=== PATIENT | male | born 1985 | race Caucasian/White ===

== ENCOUNTER 2018-07-28 13:17 | Inpatient (IN) ==
[2018-07-28] MEDS ORDERED: Albuterol 2.5 MG/3 ML NEBULIZER IH ONE ×2 (13:44→16:17)
[2018-07-28] MEDS ORDERED: Ringers Solution, Lactated 1,000 ML IVC SCH (13:45)
[2018-07-28] MEDS ORDERED: *HR* Midazolam HCl 2 MG/2 ML VIAL ONE (13:50)
[2018-07-28] MEDS ORDERED: Dexamethasone 4 MG/ML VIAL ONE (13:50)
[2018-07-28] MEDS ORDERED: Ondansetron 4 MG/2 ML VIAL ONE (13:50)
[2018-07-28] MEDS ORDERED: Bupivacaine/EPI 1:200k 0.5%PF 10 ML VIAL ONE (13:50)
[2018-07-28] MEDS ORDERED: *HR* Propofol 200 MG/20 ML VIAL IVP ONE (13:50)
[2018-07-28] MEDS ORDERED: *HR* FentaNYL (PF) 100 MCG/2 ML VIAL ONE (13:50)
[2018-07-28] MEDS ORDERED: Lidocaine -MPF 2% 2 ML VIAL ONE (13:50)
[2018-07-28] MEDS ORDERED: *HR* Rocuronium Bromide 50 MG/5 ML VIAL ONE (13:55)
[2018-07-28] MEDS ORDERED: *HR* Succinylcholine 200 MG/10 ML VIAL IVP ONE ×2 (13:55→15:50)
[2018-07-28] MEDS ORDERED: Lidocaine -MPF 4% 5 ML AMPUL ONE (13:56)
--- NOTE | 2018-07-28 14:02 | Anesthesia Evaluation PreOp ---
Date of Encounter: 07/28/18 Time of Encounter: 14:00 - Past History Planned Operation: I and D elbow Cardiac History: HTN Pulmonary History: Smoker Other Medical History: Other (obese) Anesthesia History: No Prior Anesthetic Complications, Past Anesthesia (No hx of anesthetic complications) Alcohol Use: occasionally Drug use: IV Drug Use (Hx of alcoholism and IV drug use. Has been sober 6 months, never been on suboxone rx.) Medications and Allergies Ofloxacin *EAR* Drops 10 drop BOTH EARS DAILY 07/28/18 [History] amLODIPine [Norvasc] 10 mg PO DAILY 07/28/18 [History] 3 Allergy/AdvReac Type Severity Reaction Status Date / Time No Known Allergies Allergy Verified 07/28/18 13:41 - Meds/Allergy Pre-op Review Medications Reviewed: Yes Allergies Reviewed: Yes Beta Blockers on Current Med List: No Anesthesia Results - Imaging EKG: report reviewed (sinus thom) Anesthesia Exam Selected Entries 07/28/18 13:47 Temperature 98.3 F Pulse Rate 90 Respiratory Rate 18 Blood Pressure 144/87 O2 Sat by Pulse Oximetry 97 Laboratory Tests 03/16/18 07/09/18 10:36 11:36 WBC 6.4 Hgb 16.2 Hct 45.7 Plt Count 188 Sodium 141 Potassium 4.3 Chloride 109 H Weight: 129 kg NPO (# of Hours): over 8 hours - HEENT Pupil (Motor): Pupils equal Mallampati: II Teeth: Normal Oral Opening: Greater than 3 - Cardiac Rhythm: Regular Murmur: None - Pulmonary Breath Sounds: bilateral Clear Respiratory Effort: Symmetrical Anesthesia Assess/Plan ASA Score: 3 Modified Switchback Scale for Level of Consciousness: Cooperative, oriented, and tranquil Anesthetic Plan: General Monitoring Plan: Standard Monitors Recovery Plan: PACU (Discussed GA, risks. Agreed to proceed.)
[2018-07-28 14:11] LABS: Basophils # 0.1 K/mcL (0.0-0.2); Basophils % 0.8 %; Eosinophils # 0.1 K/mcL (0.0-0.6); Eosinophils % 1.7 %; Hematocrit 47.9 % (37.5-50.1); Hemoglobin 17.2 g/dL (12.9-16.9); Immature Granulocytes % 0.3 % (0-4); Lymphocytes # 3.4 K/mcL (0.6-4.6); Lymphocytes % 52.2 %; Mean Corpuscular HGB Conc 35.9 g/dL (31.6-35.5); Mean Corpuscular Hemoglobin 33.9 pg (28.0-33.3); Mean Corpuscular Volume 94.3 fL (83.0-100.0); Monocytes # 0.4 K/mcL (0.0-1.3); Monocytes % 5.5 %; Neutrophils # 2.6 K/mcL (1.6-8.9); Platelet Count 176 K/mcL (140-400); Red Blood Count 5.08 M/mcL (4.19-5.50); Red Cell Distribution Width 12.7 % (11.5-14.5); Segmented Neutrophils % 39.5 %
[2018-07-28] MEDS ORDERED: Acetaminophen IV 1,000 MG/100 ML INFUS..BTL IVPB ONE (14:16)
[2018-07-28] MEDS ORDERED: Gabapentin 300 MG CAPSULE PO ONE (14:16)
[2018-07-28 14:42] LABS: BUN/Creatinine Ratio 12 (6-26); Blood Urea Nitrogen 11 mg/dL (6-20); Calcium 9.7 mg/dL (8.6-10.3); Carbon Dioxide 24 mEq/L (23-29); Chloride 106 mEq/L (98-107); Glucose 92 mg/dL (70-105); Osmolality,Calculated 285 (280-300); Potassium 3.8 mEq/L (3.5-5.1); Sodium 138 mEq/L (136-145); eGFR For Non-African Americans > 60 (> 60)
[2018-07-28] MEDS ORDERED: CeFAZolin Syr 2,000MG/20 ML 2,000 MG/20 ML SYRINGE IVPB ONE (14:49)
[2018-07-28] MEDS ORDERED: CeFAZolin Syr 3,000MG/30 ML 3,000 MG/30 ML SYRINGE IVPB ONE (14:56)
--- NOTE | 2018-07-28 15:09 | History & Physical Report ---
Date of Encounter: 07/28/18 Time of Encounter: 15:08 24 Hour HP Update - Instructions Instructions: If the History and Physical is less than 30 days old and was completed prior to A.M. admission and or procedure and has NOT been updated on calendar day of procedure please complete this update prior to performing procedure. - Update Patient reports changes in Medical Condition: No Changes in examination, assessment, or condition: No Changes in Medication: No Preop tests/diagnostics Reviewed: Yes Surgery Remains Indicated: Yes Consent for Planned Operative Procedure(s) Verified: Yes
[2018-07-28] MEDS ORDERED: *HR* Morphine 10 MG/ML VIAL ONE (15:41)
[2018-07-28] MEDS ORDERED: Propofol 500 MG/50 ML INFUS..BTL ONE (15:50)
[2018-07-28] MEDS ORDERED: MORPHINE SUL Oral CONC 10 MG/0.5 ML ORAL.SYG SL PRN (16:17)
[2018-07-28] MEDS ORDERED: Ondansetron 4 MG/2 ML VIAL IVP ONE (16:17)
[2018-07-28] MEDS ORDERED: Dexamethasone 4 MG/ML VIAL IVP ONE (16:17)
[2018-07-28] MEDS ORDERED: *HR* HYDROmorphone 2 MG TABLET PO PRN (16:17)
[2018-07-28] MEDS ORDERED: *HR* Promethazine 25 MG/ML VIAL IVP PRN (16:17)
[2018-07-28] MEDS ORDERED: *HR* PHENYLEPHRINE 1,000 MCG/10 ML SYRINGE IVP ONE (16:45)
[2018-07-28] MEDS ORDERED: *HR* HYDROmorphone 2 MG/ML SYRINGE ONE (16:50)
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
[2018-07-28] MEDS ORDERED: Ketorolac 30 MG/ML VIAL IVP ONE (18:19)
[2018-07-28] MEDS ORDERED: cloNIDine HCl 0.1 MG TABLET PO ONE (18:19)
--- NOTE | 2018-07-28 19:14 | Anesthesia Evaluation Post Op ---
Date of Encounter: 07/28/18 Time of Encounter: 19:14 - Discharge PostOp Status: Transfer Patient to floor (Patient's vital signs have been reviewed. Patient is stable postoperatively and has adequately recovered from anesthesia. Patient is determined to have stable airway patency and respiratory function including respiratory rate and oxygen saturation. Patient has a stable heart rate, blood pressure and adequate hydration. Patients mental status is acceptable. Patients temperature is appropriate. Pain and nausea are adequately controlled.)
[2018-07-28] MEDS ORDERED: *HR* OxyCODONE Immed Rel 5 MG TABLET PO PRN (19:28)
[2018-07-28] MEDS ORDERED: Ibuprofen 400 MG TABLET PO PRN (19:28)
[2018-07-28] MEDS ORDERED: Ondansetron 4 MG/2 ML VIAL IVP PRN (19:28)
[2018-07-28] MEDS ORDERED: Naloxone 0.4 MG/ML INJ IVP PRN (19:28)
[2018-07-28] MEDS ORDERED: Vancomycin (wt based) 1,000 MG VIAL IVPB SCH (19:28)
[2018-07-28] MEDS ORDERED: *HR* HYDROcodone/Acet 5/325 mg TABLET PO PRN (19:28)
[2018-07-29] MEDS: *HR* Enoxaparin 40 MG/0.4 ML SYRINGE SQ SCH (05:06)
[2018-07-29 05:26] LABS: Basophils % 0.1 %; Hematocrit 44.4 % (37.5-50.1); Immature Granulocytes % 0.5 % (0-4); Lymphocytes # 1.5 K/mcL (0.6-4.6); Lymphocytes % 9.7 %; Mean Corpuscular HGB Conc 35.1 g/dL (31.6-35.5); Mean Corpuscular Hemoglobin 33.8 pg (28.0-33.3); Mean Corpuscular Volume 96.1 fL (83.0-100.0); Mean Platelet Volume 10.4 fL (9.4-12.4); Monocytes # 0.7 K/mcL (0.0-1.3); Monocytes % 4.3 %; Neutrophils # 13.1 K/mcL (1.6-8.9); Platelet Count 197 K/mcL (140-400); Red Blood Count 4.62 M/mcL (4.19-5.50); Red Cell Distribution Width 12.7 % (11.5-14.5); Segmented Neutrophils % 85.4 %
[2018-07-29 05:27] LABS: Hemoglobin 15.6 g/dL (12.9-16.9)
[2018-07-29] MEDS: Ketorolac 30 MG/ML VIAL IVP PRN ×3 (05:36→20:11)
[2018-07-29 06:09] LABS: BUN/Creatinine Ratio 14 (6-26); Blood Urea Nitrogen 15 mg/dL (6-20); Calcium 9.3 mg/dL (8.6-10.3); Carbon Dioxide 23 mEq/L (23-29); Chloride 107 mEq/L (98-107); Glucose 191 mg/dL (70-105); Osmolality,Calculated 294 (280-300); Potassium 4.2 mEq/L (3.5-5.1); Sodium 139 mEq/L (136-145); eGFR For Non-African Americans > 60 (> 60)
--- NOTE | 2018-07-29 07:33 | Orthopedics Progress Note ---
Date of Encounter: 07/29/18 Time of Encounter: 07:30 Subjective Interval history: S: Resting in bed comfortably. Pain well controlled to the left elbow. O: Afebrile, VSS Left upper extremity splint in place Mild sanguinous output in the drain The patient can actively flex and extend all digits, extend the thumb, cross the index and long fingers, make an okay sign, and oppose the thumb. The fingertips are all sensate and well-perfused. Cultures are pending the bacteria was seen on the Gram stain A: Left proximal ulna osteomyelitis post hardware removal and debridement P: At this point my recommendation is for continued IV antibiotics for now. I did discuss the case with Dr. Calle of [place] and we will see the patient in consultation to assist in antibiotic management. I will take the dressing down tomorrow to evaluate the wound and pull the drain. Objective Vital signs: Vital Signs Temp Pulse Resp BP Pulse Ox 07/29/18 06:41 97.6 F 78 16 148/67 95 07/29/18 03:46 96.9 F L 71 16 144/64 94 07/29/18 00:26 97.7 F 97 17 124/83 92 07/28/18 22:06 98.8 F 86 16 108/62 93 07/28/18 21:45 98.5 F 85 16 133/76 92 07/28/18 20:43 99 F 85 16 120/79 96 07/28/18 19:56 98.5 F 80 16 121/77 94 07/28/18 19:35 98.6 F 84 16 147/83 97 07/28/18 19:07 88 22 133/89 97 07/28/18 18:57 78 20 135/88 93 07/28/18 18:47 97.3 F L 78 20 139/87 92 07/28/18 18:37 78 20 131/98 92 07/28/18 18:27 89 20 157/109 92 07/28/18 18:17 97.1 F L 84 18 128/93 94 07/28/18 18:07 94 20 139/88 94 07/28/18 17:57 99 22 142/91 96 07/28/18 17:47 98.2 F 98 20 149/98 95 07/28/18 13:47 98.3 F 90 18 144/87 97 Intake and Output 07/28/18 07/28/18 07/29/18 15:59 23:59 07:59 Intake Total 500 / 500 Output Total 40 / 40 310 / 310 Balance 460 / 460 -310 / -310 Intake: IV Fluids 500 / 500 Vancocin 2,000 MG In 0.9 % 500 / 500 Sodium Chloride 500 ML @ 250 mls/hr IVPB Q[facility]H [facility] Rx#: [id number] Output: Urine 300 / 300 Estimated Blood Loss Wound Drainage Left Elbow Other: # Voids 1 Weight 129.274 kg 135.7 kg Patient Weight 07/29/18 23:59 Weight 135.7 kg - Labs CBC & BMP: 07/29/18 05:12 07/29/18 05:12 Labs: Abnormal lab results WBC 15.3 K/mcL (4.3-11.1) H D 07/29/18 05:12 MCH 33.8 pg (28.0-33.3) H 07/29/18 05:12 Neutrophils # 13.1 K/mcL (1.6-8.9) H 07/29/18 05:12 ESR 17 mm/hr (0-10) H 07/28/18 18:20 Glucose 191 mg/dL (70-105) H 07/29/18 05:12 C-Reactive Protein 10 mg/L (Less than 10) H 07/28/18 18:20 Consult Discharge Plan - Plan Referrals: Sunita Hackett [Primary Care Provider] -
[2018-07-29] MEDS: amLODIPine 5 MG TABLET PO SCH (08:31)
--- NOTE | 2018-07-29 08:40 | Electrocardiograph Report ---
[place] [employer] [facility] Test Date: 2018-07-28 Pat Name: Oswald Perez Department: 101 Room: [facility] Gender: M Staff Radiographer: SHERI : 1985 Requested By: Rudolph Saldana Order Number: [id number] Reading MD: Ishaan Castillo Measurements Intervals [place] Rate: 87 P: 35 SC: 150 QRS: 38 QRSD: 87 T: 10 QT: 362 QTc: 406 Interpretive Statements SINUS RHYTHM Electronically Signed On 07-29-2018 8:38:38 EDT by Ishaan Castillo
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
[2018-07-29] MEDS: Ofloxacin *EAR* Drops 5 ML BOTTLE BOTH EARS SCH (16:04)
[2018-07-29] MEDS: Ringers Solution, Lactated 1,000 ML IVC SCH ×2 (17:48→17:49)
[2018-07-29 19:52] LABS: HIV-1&2 Antibody & p24 Ag Nonreactive (Nonreactive); Hepatitis B Surface Antigen Nonreactive (Nonreactive)
[2018-07-29 22:06] LABS: Hepatitis B Surface Antibody 104.29 mIU/mL
[2018-07-30] MEDS: *HR* Enoxaparin 40 MG/0.4 ML SYRINGE SQ SCH (05:07)
--- NOTE | 2018-07-30 07:56 | Orthopedics Progress Note ---
Date of Encounter: 07/30/18 Time of Encounter: 07:54 Subjective Interval history: S: Resting in bed comfortably. Pain well controlled to the left elbow. O: Afebrile, VSS Left upper extremity splint in place Dressing and splint changed. Wound is clean, dry, and intact. Mild sanguinous output in the drain; Drian pulled The patient can actively flex and extend all digits, extend the thumb, cross the index and long fingers, make an okay sign, and oppose the thumb. The fingertips are all sensate and well-perfused. Cultures are pending the bacteria was seen on the Gram stain A: Left proximal ulna osteomyelitis post hardware removal and debridement P: Appreciate Dr. Calle's consult; IV antibiotics for now. F/U cultures Up adlib. Digital motion exercises. Will discuss with director of social work regarding placement. Objective Vital signs: Vital Signs Temp Pulse Resp BP Pulse Ox 07/30/18 06:39 97.8 F 91 16 139/86 98 07/30/18 04:13 98.1 F 85 18 142/80 96 07/29/18 23:50 97.9 F 88 18 146/86 96 07/29/18 21:05 97.9 F 87 18 145/84 96 07/29/18 20:16 95 07/29/18 10:02 97.8 F 81 16 144/73 95 Intake and Output 07/29/18 07/29/18 07/30/18 15:59 23:59 07:59 Intake Total 400 / 400 500 / 500 300 / 300 Output Total 350 / 350 10 10 Balance 50 / 50 500 / 500 290 / 290 Intake: IV Fluids 500 / 500 Vancocin 1,750 MG In 0.9 % 500 / 500 Sodium Chloride 500 ML @ 333.3 mls/hr IVPB Q12H [facility] Rx#: [id number] Oral 400 / 400 300 / 300 Output: Urine 350 / 350 Wound Drainage Left Elbow Other: Meal Lunch Dinner Percent of Meal Consumed 90% 100% # Voids 1 Weight 135.8 kg Patient Weight 07/30/18 23:59 Weight 135.8 kg - Labs CBC & BMP: 07/29/18 05:12 07/29/18 05:12 Labs: Abnormal lab results WBC 15.3 K/mcL (4.3-11.1) H D 07/29/18 05:12 MCH 33.8 pg (28.0-33.3) H 07/29/18 05:12 Neutrophils # 13.1 K/mcL (1.6-8.9) H 07/29/18 05:12 ESR 17 mm/hr (0-10) H 07/28/18 18:20 Glucose 191 mg/dL (70-105) H 07/29/18 05:12 C-Reactive Protein 10 mg/L (Less than 10) H 07/28/18 18:20 Consult Discharge Plan - Plan Referrals: Sunita Hackett [Primary Care Provider] -
[2018-07-30] MEDS: amLODIPine 5 MG TABLET PO SCH (08:03)
[2018-07-30] MEDS: Ofloxacin *EAR* Drops 5 ML BOTTLE BOTH EARS SCH (08:05)
[2018-07-30] MEDS: Ketorolac 30 MG/ML VIAL IVP PRN ×2 (08:10→21:45)
--- NOTE | 2018-07-30 14:38 | Infectious Disease Progress No ---
Date of Encounter: 07/30/18 Time of Encounter: 12:05 - Assessment and Plan (1) Infection of left elbow Current Visit: Yes Status: Acute Location: Left elbow. Causative organism unclear. Likely secondary to infected hardware from previous infections. Pre-op ESR 17, CRP 10. No sepsis criteria. Ortho following. Status post irrigation and debridement of the left elbow including the proximal ulna and removal of left elbow hardware. Operative note reviewed. Gross purulence noted intra-op. Concern for OM of the ulna. Intra-op cultures are positive for S. aureus, presumptively MRSA per PBP2 testing. Request pathologist review of the surgical bone specimen in case cultures are negative.--> pending. Blood cultures x 2 sets drawn 07/29/18 are pending x 2 sets. Continue Vancomycin IV. Pharmacy to dose. Goal trough ~15. Wound care and activity restrictions per the ortho team. Duration of treatment depends on the clinical picture, but likely 4-6 weeks. Monitor renal function and for drug toxicity and dose-adjust antibiotics. donor services coordinator to assist with discharge planning. Consult VAT for PICC line placement once blood cultures are negative x 48 hours. Will need weekly CBC, BUN/Cr, Vanc trough, ESR, and CRP. Will need weekly PICC care per protocol. Follow up with ID 08/18/18 at 0920. (2) Status post hardware removal Current Visit: Yes Status: Acute Status post removal of hardware 07/28/[address] Saldana. (3) Hepatitis C Current Visit: Yes Status: Acute Known Hep C positive from IVDU. Recommend referral to GI as an outpatient. Qualifiers: Viral hepatitis chronicity: chronic Hepatic coma status: without hepatic coma Qualified Code(s): B18.2 - Chronic viral hepatitis C (4) H/O intravenous drug use in remission Current Visit: Yes Status: Acute Known Hep C positive. Check Hep B serologies.--> Antigen negative, Antibody positive. Check HIV. --> nonreactive. - Subjective Interval history: Patient seen and examined. No acute events noted overnight. Patient states overall he feels well. Denies fevers, chills, or rigors. Denies chest pain, shortness of breath, or cough. Denies nausea, vomiting, or diarrhea. Denies abdominal pain, urinary complaints, or appetite changes. Denies oral thrush or new skin lesions. Denies pain at the surgical site. Drain was removed this morning by the ortho team. Infect Dis PN-Objective Data - Labs CBC & Chem 7: 07/29/18 05:12 07/29/18 05:12 Labs: Laboratory Results - last 24 hr 07/29/18 18:16 Hep Bs Antigen Nonreactive Hep Bs Antibody 104.29 HIV Ag/Ab Combo Qual Nonreactive Cultures: Cultures 07/28/18 16:50 Surgical Biopsy Culture - Preliminary Bone Staphylococcus aureus 07/28/18 16:50 Wound Culture - Preliminary Left Elbow Staphylococcus aureus 07/28/18 16:50 Gram Stain - Final Left Elbow 07/29/18 18:16 Blood Culture - Preliminary Peripheral Venipuncture Culture is incubating and being continuously monitored for growth. Final report to follow. 07/29/18 18:16 Blood Culture - Preliminary Peripheral Venipuncture Culture is incubating and being continuously monitored for growth. Final report to follow. Serology 07/29/18 Range/Units 18:16 Hep Bs Antigen Nonreactive (Nonreactive) Hep Bs Antibody 104.29 mIU/mL HIV Ag/Ab Combo Qual Nonreactive (Nonreactive) Exam - Constitutional Vitals: Temp Pulse Resp BP Pulse Ox 98.1 F 87 16 129/86 98 07/30/18 10:05 07/30/18 10:05 07/30/18 10:05 07/30/18 10:05 07/30/18 10:05 General appearance: cooperative, no acute distress, obese - Head Head exam: Present: atraumatic, normal inspection, normocephalic - Eye Eye exam: Present: EOMI, normal appearance, PERRL Pupils: Present: normal accommodation - ENT ENT exam: Present: mucous membranes moist - Neck Neck exam: Present: normal inspection - Respiratory Respiratory exam: Present: CTAB. Absent: rales, respiratory distress, rhonchi, wheezes - Cardiovascular Cardiovascular exam: Present: RRR, +S1, +S2 - GI/Abdominal GI/Abdominal exam: Present: distended (obese), normal bowel sounds, soft. Absent: tenderness - Extremities Exam Extremities exam: Absent: joint swelling, pedal edema, tenderness Additional comments: Left elbow dressing and splint C/D/I. - Neurological Exam Neurological exam: Present: alert, oriented X3, no focal deficits - Psychiatric Psychiatric exam: Present: normal affect, normal mood - Skin Skin exam: Present: dry, intact, normal color, warm Consult Discharge Plan - Plan Referrals: Sunita Hackett [Primary Care Provider] - Lauren Iverson CNP [Advanced Practice Nurse] - 08/18/18 9:00 am - Attending Attestation I examined this patient and my medical decision-making was reviewed with the Resident Physician. I agree with the documented findings, disposition and treatment plan as described except to the extent set forth below.
[2018-07-31 01:53] LABS: Basophils # 0.1 K/mcL (0.0-0.2); Basophils % 0.5 %; Eosinophils # 0.1 K/mcL (0.0-0.6); Eosinophils % 1.5 %; Hemoglobin 16.4 g/dL (12.9-16.9); Immature Granulocytes % 0.3 % (0-4); Lymphocytes # 4.7 K/mcL (0.6-4.6); Lymphocytes % 51.4 %; Mean Corpuscular HGB Conc 34.9 g/dL (31.6-35.5); Mean Corpuscular Hemoglobin 33.7 pg (28.0-33.3); Mean Corpuscular Volume 96.7 fL (83.0-100.0); Mean Platelet Volume 10.4 fL (9.4-12.4); Monocytes # 0.6 K/mcL (0.0-1.3); Neutrophils # 3.7 K/mcL (1.6-8.9); Platelet Count 186 K/mcL (140-400); Red Blood Count 4.86 M/mcL (4.19-5.50); Segmented Neutrophils % 40.3 %
[2018-07-31 02:11] LABS: BUN/Creatinine Ratio 16 (6-26); Blood Urea Nitrogen 13 mg/dL (6-20); C-Reactive Protein 7 mg/L (Less than 10); Calcium 9.1 mg/dL (8.6-10.3); Carbon Dioxide 24 mEq/L (23-29); Chloride 110 mEq/L (98-107); Glucose 126 mg/dL (70-105); Osmolality,Calculated 292 (280-300); Potassium 4.3 mEq/L (3.5-5.1); Sodium 140 mEq/L (136-145); eGFR For Non-African Americans > 60 (> 60)
[2018-07-31] MEDS: *HR* Enoxaparin 40 MG/0.4 ML SYRINGE SQ SCH (05:52)
[2018-07-31] MEDS: Ketorolac 30 MG/ML VIAL IVP PRN ×2 (05:53→21:18)
--- NOTE | 2018-07-31 07:44 | Orthopedics Progress Note ---
Date of Encounter: 07/31/18 Time of Encounter: 07:42 Subjective Interval history: S: Resting in bed comfortably. Pain well controlled to the left elbow. O: Afebrile, VSS Left upper extremity splint in place The patient can actively flex and extend all digits, extend the thumb, cross the index and long fingers, make an okay sign, and oppose the thumb. The fingertips are all sensate and well-perfused. Cultures presumptively MRSA from the left proximal ulna A: Left proximal ulna osteomyelitis P: Appreciate ID assistance Will need SNF on discharge given patient's history of IV drug use; discussed with social media community manager Discharge when placed. Objective Vital signs: Vital Signs Temp Pulse Resp BP Pulse Ox 07/31/18 06:59 97.7 F 78 16 138/84 93 07/30/18 22:52 98.0 F 79 16 121/72 96 07/30/18 18:33 98.0 F 93 16 133/83 96 07/30/18 14:11 98 F 93 16 136/84 98 07/30/18 10:05 98.1 F 87 16 129/86 98 Intake and Output 07/30/18 07/30/18 07/31/18 15:59 23:59 07:59 Intake Total 980 / 980 350 / 350 Output Total 600 / 600 Balance 380 / 380 350 / 350 Intake: IV Fluids 500 / 500 Vancocin 1,750 MG In 0.9 % 500 / 500 Sodium Chloride 500 ML @ 333.3 mls/hr IVPB Q12H [facility] Rx#: [id number] Oral 480 / 480 350 / 350 Output: Urine 600 / 600 Other: Meal Lunch Percent of Meal Consumed 100% # Voids 2 - Labs CBC & BMP: 07/31/18 01:23 07/31/18 01:23 Labs: Abnormal lab results MCH 33.7 pg (28.0-33.3) H 07/31/18 01:23 Lymphocytes # 4.7 K/mcL (0.6-4.6) H 07/31/18 01:23 ESR 44 mm/hr (0-10) H 07/31/18 01:23 Chloride 110 mEq/L (98-107) H 07/31/18 01:23 Glucose 126 mg/dL (70-105) H 07/31/18 01:23 Vancomycin Trough 11 mcg/mL (5-10) H 07/30/18 19:31 Consult Discharge Plan - Plan Referrals: Lauren Iverson CNP [Advanced Practice Nurse] - 08/18/18 9:00 am Sunita Hackett [Primary Care Provider] -
[2018-07-31] MEDS ORDERED: Lidocaine -MPF 1% 5 ML AMPUL INFILT ONE ×2 (08:02→08:18)
[2018-07-31] MEDS: amLODIPine 5 MG TABLET PO SCH (08:05)
[2018-07-31] MEDS: Ofloxacin *EAR* Drops 5 ML BOTTLE BOTH EARS SCH (08:05)
--- NOTE | 2018-07-31 12:43 | Infectious Disease Progress No ---
Date of Encounter: 07/31/18 Time of Encounter: 12:41 - Assessment and Plan (1) Infection of left elbow Current Visit: Yes Status: Acute Location: Left elbow. Causative organism unclear. Likely secondary to infected hardware from previous infections. Pre-op ESR 17, CRP 10. No sepsis criteria. Ortho following. Status post irrigation and debridement of the left elbow including the proximal ulna and removal of left elbow hardware. Operative note reviewed. Gross purulence noted intra-op. Concern for OM of the ulna. Intra-op cultures are positive for MRSA, both fluid and bone. Request pathologist review of the surgical bone specimen in case cultures are negative.--> negative for OM. Blood cultures x 2 sets drawn 07/29/18 are pending x 2 sets. Continue Vancomycin IV. Pharmacy to dose. Goal trough ~15. Wound care and activity restrictions per the ortho team. Duration of treatment depends on the clinical picture, but likely 4-6 weeks. Monitor renal function and for drug toxicity and dose-adjust antibiotics. volunteer services director to assist with discharge planning. PICC line placed 07/31/18. Will need weekly CBC, BUN/Cr, Vanc trough, ESR, and CRP. Will need weekly PICC care per protocol. Follow up with ID 08/18/18 at 0920. (2) Status post hardware removal Current Visit: Yes Status: Acute Status post removal of hardware 07/28/[address] Saldana. (3) Hepatitis C Current Visit: Yes Status: Acute Known Hep C positive from IVDU. Recommend referral to GI as an outpatient. Qualifiers: Viral hepatitis chronicity: chronic Hepatic coma status: without hepatic coma Qualified Code(s): B18.2 - Chronic viral hepatitis C (4) H/O intravenous drug use in remission Current Visit: Yes Status: Acute Known Hep C positive. Check Hep B serologies.--> Antigen negative, Antibody positive. Check HIV. --> nonreactive. - Subjective Interval history: Patient seen and examined. No acute events noted overnight. Patient states overall he feels well. Denies fevers, chills, or rigors. Denies chest pain, shortness of breath, or cough. Denies nausea, vomiting, or diarrhea. Denies abdominal pain, urinary complaints, or appetite changes. Denies oral thrush or new skin lesions. Denies pain at the surgical site. Infect Dis PN-Objective Data - Labs CBC & Chem 7: 07/31/18 01:23 07/31/18 01:23 Labs: Laboratory Results - last 24 hr 07/30/18 07/31/18 07/31/18 19:31 01:23 01:23 WBC 9.2 RBC 4.86 Hgb 16.4 Hct 47.0 MCV 96.7 MCH 33.7 H MCHC 34.9 RDW 13.0 Plt Count 186 MPV 10.4 Immature Gran % 0.3 Seg Neutrophils % 40.3 Lymphocytes % 51.4 Monocytes % 6.0 Eosinophils % 1.5 Basophils % 0.5 Neutrophils # 3.7 Lymphocytes # 4.7 H Monocytes # 0.6 Eosinophils # 0.1 Basophils # 0.1 ESR 44 H Sodium Potassium Chloride Carbon Dioxide BUN Creatinine Est GFR ( Amer) Est GFR (Non-Af Amer) BUN/Creatinine Ratio Glucose Calculated Osmolality Calcium C-Reactive Protein Vancomycin Trough 11 H 07/31/18 01:23 WBC RBC Hgb Hct MCV MCH MCHC RDW Plt Count MPV Immature Gran % Seg Neutrophils % Lymphocytes % Monocytes % Eosinophils % Basophils % Neutrophils # Lymphocytes # Monocytes # Eosinophils # Basophils # ESR Sodium 140 Potassium 4.3 Chloride 110 H Carbon Dioxide 24 BUN 13 Creatinine 0.83 Est GFR ( Amer) > 60 Est GFR (Non-Af Amer) > 60 BUN/Creatinine Ratio 16 Glucose 126 H Calculated Osmolality 292 Calcium 9.1 C-Reactive Protein 7 Vancomycin Trough Cultures: Cultures 07/28/18 16:50 Surgical Biopsy Culture - Final Bone Methicillin Resistant S.aureus 07/28/18 16:50 Anaerobic Culture - Preliminary Left Elbow At this time, no anaerobic growth is present. The culture will be finalized after 5 days of incubation. 07/28/18 16:50 Anaerobic Culture - Preliminary Left Elbow At this time, no anaerobic growth is present. The culture will be finalized after 5 days of incubation. 07/28/18 16:50 Wound Culture - Final Left Elbow Methicillin Resistant S.aureus 07/28/18 16:50 Gram Stain - Final Left Elbow 07/29/18 18:16 Blood Culture - Preliminary Peripheral Venipuncture Culture is incubating and being continuously monitored for growth. Final report to follow. 07/29/18 18:16 Blood Culture - Preliminary Peripheral Venipuncture Culture is incubating and being continuously monitored for growth. Final report to follow. Serology 07/29/18 Range/Units 18:16 Hep Bs Antigen Nonreactive (Nonreactive) Hep Bs Antibody 104.29 mIU/mL HIV Ag/Ab Combo Qual Nonreactive (Nonreactive) Exam - Constitutional Vitals: Temp Pulse Resp BP Pulse Ox 98.1 F 81 16 134/89 94 07/31/18 12:18 07/31/18 12:18 07/31/18 12:18 07/31/18 12:18 07/31/18 12:18 General appearance: cooperative, no acute distress, obese - Head Head exam: Present: atraumatic, normal inspection, normocephalic - Eye Eye exam: Present: EOMI, normal appearance, PERRL Pupils: Present: normal accommodation - ENT ENT exam: Present: mucous membranes moist - Neck Neck exam: Present: normal inspection - Respiratory Respiratory exam: Present: CTAB. Absent: rales, respiratory distress, rhonchi, wheezes - Cardiovascular Cardiovascular exam: Present: RRR, +S1, +S2 - GI/Abdominal GI/Abdominal exam: Present: distended (obese), normal bowel sounds, soft. Absent: tenderness - Extremities Exam Extremities exam: Absent: pedal edema, tenderness Additional comments: Left UE dressing/splint C/D/I. - Neurological Exam Neurological exam: Present: alert, oriented X3, no focal deficits - Psychiatric Psychiatric exam: Present: normal affect, normal mood - Skin Skin exam: Present: dry, intact, normal color, warm Consult Discharge Plan - Plan Referrals: Lauren Iverson CNP [Advanced Practice Nurse] - 08/18/18 9:00 am Sunita Hackett [Primary Care Provider] - Prescriptions: Vancomycin [Vancocin] 2,000 mg IV Q12H #84 vial
[2018-08-01] MEDS: *HR* Enoxaparin 40 MG/0.4 ML SYRINGE SQ SCH (05:12)
[2018-08-01] MEDS: amLODIPine 5 MG TABLET PO SCH (09:30)
[2018-08-01] MEDS: Ofloxacin *EAR* Drops 5 ML BOTTLE BOTH EARS SCH (09:31)
[2018-08-01] MEDS: Ketorolac 30 MG/ML VIAL IVP PRN ×2 (09:35→22:05)
--- NOTE | 2018-08-01 16:00 | Orthopedics Progress Note ---
Date of Encounter: 08/01/18 Time of Encounter: 15:57 Subjective Principal diagnosis: Left elbow osteomyelitis of the ulnar Interval history: Patient is comfortable without complaints PICC line in place in the right upper extremity Left upper extremity splint in place. His minimal swelling to the hand and move digits well, grossly neurovascularly intact +MRSA Assessment:postoperative for status post left elbow removal of hardware and I&D of proximal ulna Plan: Continue IV antibiotics [facility] Objective Vital signs: Vital Signs Temp Pulse Resp BP Pulse Ox 08/01/18 15:31 98.9 F 87 16 122/71 97 08/01/18 11:01 98.3 F 75 18 105/73 98 08/01/18 07:08 97.7 F 77 16 120/80 96 07/31/18 23:17 98.1 F 77 18 145/84 97 07/31/18 19:09 98.6 F 90 18 164/105 93 07/31/18 16:55 98.8 F 91 14 124/82 98 Intake and Output 07/31/18 08/01/18 08/01/18 23:59 07:59 15:59 Intake Total 360 / 360 1360 / 1360 Balance 360 / 360 1360 / 1360 Intake: IV Fluids 1000 / 1000 Vancocin 2,000 MG In 0.9 % 1000 / 1000 Sodium Chloride 500 ML @ 250 mls/hr IVPB Q12H [facility] Rx#: [id number] Oral 360 / 360 360 / 360 Other: Meal Dinner Breakfast Percent of Meal Consumed 100% 80% # Voids 2 - Labs CBC & BMP: 07/31/18 01:23 07/31/18 01:23 Labs: Abnormal lab results MCH 33.7 pg (28.0-33.3) H 07/31/18 01:23 Lymphocytes # 4.7 K/mcL (0.6-4.6) H 07/31/18 01:23 ESR 44 mm/hr (0-10) H 07/31/18 01:23 Chloride 110 mEq/L (98-107) H 07/31/18 01:23 Glucose 126 mg/dL (70-105) H 07/31/18 01:23 Vancomycin Trough 11 mcg/mL (5-10) H 07/30/18 19:31 Consult Discharge Plan - Plan Referrals: Lauren Iverson CNP [Advanced Practice Nurse] - 08/18/18 9:00 am Sunita Hackett [Primary Care Provider] - Prescriptions: Vancomycin [Vancocin] 2,000 mg IV Q12H #84 vial
[2018-08-02] MEDS: *HR* Enoxaparin 40 MG/0.4 ML SYRINGE SQ SCH (05:29)
[2018-08-02] MEDS: Ofloxacin *EAR* Drops 5 ML BOTTLE BOTH EARS SCH (09:43)
[2018-08-02] MEDS: amLODIPine 5 MG TABLET PO SCH (09:43)
[2018-08-02] MEDS: Ketorolac 30 MG/ML VIAL IVP PRN (09:50)
--- NOTE | 2018-08-02 21:15 | Orthopedics Progress Note ---
Date of Encounter: 08/02/18 Time of Encounter: 21:13 Subjective Principal diagnosis: Left elbow osteomyelitis of the ulnar Interval history: Patient is without complaints. Afebrile vital signs stable. Left upper extremity splint intact. PICC line is in place. He is able to fire all digits actively and has brisk capillary refill. Impression: stable Plan: Going to [facility] for continued IV antibiotic therapy. Objective Vital signs: Vital Signs Temp Pulse Resp BP Pulse Ox 08/02/18 19:51 150/68 08/02/18 19:11 98.4 F 101 18 161/128 94 08/02/18 15:46 98.8 F 82 16 135/87 97 08/02/18 11:24 98.2 F 84 15 140/70 98 08/02/18 07:45 97.8 F 83 17 104/68 96 08/02/18 04:25 97.9 F 72 18 134/80 96 08/01/18 23:49 98.1 F 80 18 133/83 97 Intake and Output 08/02/18 08/02/18 08/02/18 07:59 15:59 23:59 Intake Total 500 / 500 980 / 980 0 / 0 Balance 500 / 500 980 / 980 0 / 0 Intake: IV Fluids 500 / 500 500 / 500 Vancocin 2,000 MG In 0.9 % 500 / 500 500 / 500 Sodium Chloride 500 ML @ 250 mls/hr IVPB Q12H [facility] Rx#: [id number] Oral 480 / 480 0 / 0 Other: Meal Lunch Percent of Meal Consumed 100% # Voids 1 1 Weight 128.8 kg Patient Weight 08/02/18 23:59 Weight 128.8 kg - Labs CBC & BMP: 07/31/18 01:23 07/31/18 01:23 Labs: Abnormal lab results MCH 33.7 pg (28.0-33.3) H 07/31/18 01:23 Lymphocytes # 4.7 K/mcL (0.6-4.6) H 07/31/18 01:23 ESR 44 mm/hr (0-10) H 07/31/18 01:23 Chloride 110 mEq/L (98-107) H 07/31/18 01:23 Glucose 126 mg/dL (70-105) H 07/31/18 01:23 Vancomycin Trough 15 mcg/mL (5-10) H 08/01/18 21:00 Consult Discharge Plan - Plan Referrals: Lauren Iverson, DARLENE [Advanced Practice Nurse] - 08/18/18 9:00 am Sunita Hackett [Primary Care Provider] - Prescriptions: Vancomycin [Vancocin] 2,000 mg IV Q12H #84 vial
[2018-08-02] MEDS: traMADol 50 MG TABLET PO PRN (22:29)
[2018-08-03] MEDS: *HR* Enoxaparin 40 MG/0.4 ML SYRINGE SQ SCH (05:32)
[2018-08-03] MEDS: Ofloxacin *EAR* Drops 5 ML BOTTLE BOTH EARS SCH (08:17)
[2018-08-03] MEDS: amLODIPine 5 MG TABLET PO SCH (09:06)
[2018-08-03 09:49] LABS: Basophils # 0.1 K/mcL (0.0-0.2); Basophils % 0.6 %; Eosinophils # 0.2 K/mcL (0.0-0.6); Hematocrit 46.1 % (37.5-50.1); Hemoglobin 16.4 g/dL (12.9-16.9); Immature Granulocytes % 0.6 % (0-4); Lymphocytes # 3.8 K/mcL (0.6-4.6); Lymphocytes % 42.7 %; Mean Corpuscular HGB Conc 35.6 g/dL (31.6-35.5); Mean Corpuscular Hemoglobin 33.7 pg (28.0-33.3); Mean Corpuscular Volume 94.9 fL (83.0-100.0); Mean Platelet Volume 10.2 fL (9.4-12.4); Monocytes # 0.4 K/mcL (0.0-1.3); Monocytes % 3.9 %; Neutrophils # 4.5 K/mcL (1.6-8.9); Platelet Count 203 K/mcL (140-400); Red Blood Count 4.86 M/mcL (4.19-5.50); Red Cell Distribution Width 12.5 % (11.5-14.5); Segmented Neutrophils % 50.2 %
[2018-08-03 09:57] LABS: BUN/Creatinine Ratio 17 (6-26); Blood Urea Nitrogen 16 mg/dL (6-20); Calcium 9.5 mg/dL (8.6-10.3); Carbon Dioxide 24 mEq/L (23-29); Chloride 107 mEq/L (98-107); Glucose 136 mg/dL (70-105); Osmolality,Calculated 289 (280-300); Potassium 3.9 mEq/L (3.5-5.1); Sodium 138 mEq/L (136-145); eGFR For Non-African Americans > 60 (> 60)
--- NOTE | 2018-08-03 14:31 | Infectious Disease Progress No ---
Date of Encounter: 08/03/18 Time of Encounter: 10:30 - Assessment and Plan (1) Infection of left elbow Current Visit: Yes Status: Acute Location: Left elbow. Causative organism unclear. Likely secondary to infected hardware from previous infections. Pre-op ESR 17, CRP 10. No sepsis criteria. Ortho following. Status post irrigation and debridement of the left elbow including the proximal ulna and removal of left elbow hardware. Operative note reviewed. Gross purulence noted intra-op. Concern for OM of the ulna. Intra-op cultures are positive for MRSA, both fluid and bone. Request pathologist review of the surgical bone specimen in case cultures are negative.--> negative for OM. Blood cultures x 2 sets drawn 07/29/18 are NGTD x 2 sets. Continue Vancomycin IV. Pharmacy to dose. Goal trough ~15. Wound care and activity restrictions per the ortho team. Duration of treatment depends on the clinical picture, but likely 4-6 weeks. Monitor renal function and for drug toxicity and dose-adjust antibiotics. business services specialist sales to assist with discharge planning. PICC line placed 07/31/18. Will need weekly CBC, BUN/Cr, Vanc trough, ESR, and CRP. Will need weekly PICC care per protocol. Follow up with ID 08/18/18 at 0920. (2) Status post hardware removal Current Visit: Yes Status: Acute Status post removal of hardware 07/28/[address] Saldana. (3) Hepatitis C Current Visit: Yes Status: Acute Known Hep C positive from IVDU. Recommend referral to GI as an outpatient. Qualifiers: Viral hepatitis chronicity: chronic Hepatic coma status: without hepatic coma Qualified Code(s): B18.2 - Chronic viral hepatitis C (4) H/O intravenous drug use in remission Current Visit: Yes Status: Acute Known Hep C positive. Check Hep B serologies.--> Antigen negative, Antibody positive. Check HIV. --> nonreactive. - Subjective Interval history: Patient seen and examined. No acute events noted overnight. Patient states overall he feels well. Denies fevers, chills, or rigors. Denies chest pain, shortness of breath, or cough. Denies nausea, vomiting, or diarrhea. Denies abdominal pain, urinary complaints, or appetite changes. Denies oral thrush or new skin lesions. Denies pain at the surgical site. Pending evaluation by ECF for possible placement later today. Infect Dis PN-Objective Data - Labs CBC & Chem 7: 08/03/18 09:31 08/03/18 09:31 Labs: Laboratory Results - last 24 hr 08/03/18 08/03/18 09:31 09:31 WBC 8.9 RBC 4.86 Hgb 16.4 Hct 46.1 MCV 94.9 MCH 33.7 H MCHC 35.6 H RDW 12.5 Plt Count 203 MPV 10.2 Immature Gran % 0.6 Seg Neutrophils % 50.2 Lymphocytes % 42.7 Monocytes % 3.9 Eosinophils % 2.0 Basophils % 0.6 Neutrophils # 4.5 Lymphocytes # 3.8 Monocytes # 0.4 Eosinophils # 0.2 Basophils # 0.1 Sodium 138 Potassium 3.9 Chloride 107 Carbon Dioxide 24 BUN 16 Creatinine 0.95 Est GFR ( Amer) > 60 Est GFR (Non-Af Amer) > 60 BUN/Creatinine Ratio 17 Glucose 136 H Calculated Osmolality 289 Calcium 9.5 Cultures: Cultures 07/28/18 16:50 Anaerobic Culture - Final Left Elbow No anaerobes were recovered. 07/28/18 16:50 Anaerobic Culture - Final Left Elbow No anaerobes were recovered. 07/28/18 16:50 Surgical Biopsy Culture - Final Bone Methicillin Resistant S.aureus 07/28/18 16:50 Wound Culture - Final Left Elbow Methicillin Resistant S.aureus 07/28/18 16:50 Gram Stain - Final Left Elbow 07/29/18 18:16 Blood Culture - Preliminary Peripheral Venipuncture Culture is incubating and being continuously monitored for growth. Final report to follow. 07/29/18 18:16 Blood Culture - Preliminary Peripheral Venipuncture Culture is incubating and being continuously monitored for growth. Final report to follow. Serology 07/29/18 Range/Units 18:16 Hep Bs Antigen Nonreactive (Nonreactive) Hep Bs Antibody 104.29 mIU/mL HIV Ag/Ab Combo Qual Nonreactive (Nonreactive) Exam - Constitutional Vitals: Temp Pulse Resp BP Pulse Ox 98.9 F 80 18 126/76 95 08/03/18 10:44 08/03/18 10:44 08/03/18 10:44 08/03/18 10:44 08/03/18 10:44 General appearance: cooperative, no acute distress, obese - Head Head exam: Present: atraumatic, normal inspection, normocephalic - Eye Eye exam: Present: EOMI, normal appearance, PERRL Pupils: Present: normal accommodation - ENT ENT exam: Present: mucous membranes moist - Neck Neck exam: Present: normal inspection - Respiratory Respiratory exam: Present: CTAB. Absent: rales, respiratory distress, rhonchi, wheezes - Cardiovascular Cardiovascular exam: Present: RRR, +S1, +S2 - GI/Abdominal GI/Abdominal exam: Present: distended (obese), normal bowel sounds, soft. Absent: tenderness - Extremities Exam Extremities exam: Absent: joint swelling, normal inspection (LUE splint and dressing C/D/I.), pedal edema, tenderness - Neurological Exam Neurological exam: Present: alert, oriented X3, no focal deficits - Psychiatric Psychiatric exam: Present: normal affect, normal mood - Skin Skin exam: Present: dry, intact, normal color, warm Consult Discharge Plan - Plan Referrals: Lauren Iverson, AREA MANAGER [Advanced Practice Nurse] - 08/18/18 9:00 am Sunita Hackett [Primary Care Provider] - Prescriptions: Vancomycin [Vancocin] 2,000 mg IV Q12H #84 vial - Attending Attestation I examined this patient and my medical decision-making was reviewed with the Resident Physician. I agree with the documented findings, disposition and treatment plan as described except to the extent set forth below.
--- NOTE | 2018-08-03 17:35 | Orthopedics Progress Note ---
Date of Encounter: 08/03/18 Time of Encounter: 17:33 Subjective Principal diagnosis: Left elbow osteomyelitis of the ulnar Interval history: S: Resting in bed comfortably. Pain well controlled to the left elbow. O: Afebrile, VSS Left upper extremity splint in place The patient can actively flex and extend all digits, extend the thumb, cross the index and long fingers, make an okay sign, and oppose the thumb. The fingertips are all sensate and well-perfused. Cultures presumptively MRSA from the left proximal ulna A: Left proximal ulna osteomyelitis P: Appreciate ID assistance Will need SNF on discharge given patient's history of IV drug use; discussed with social worker psychiatric Discharge when placed. Objective Vital signs: Vital Signs Temp Pulse Resp BP Pulse Ox 08/03/18 14:58 98.9 F 61 18 137/86 93 08/03/18 10:44 98.9 F 80 18 126/76 95 08/03/18 06:39 98.7 F 76 18 124/73 96 08/03/18 03:55 97.8 F 78 18 115/79 96 08/02/18 22:55 98.6 F 86 16 139/94 95 08/02/18 19:51 150/68 08/02/18 19:11 98.4 F 101 18 161/128 94 Intake and Output 08/03/18 08/03/18 08/03/18 07:59 15:59 23:59 Intake Total 740 / 740 980 / 980 Balance 740 / 740 980 / 980 Intake: IV Fluids 500 / 500 500 / 500 Vancocin 2,000 MG In 0.9 % 500 / 500 500 / 500 Sodium Chloride 500 ML @ 250 mls/hr IVPB Q12H [facility] Rx#: [id number] Oral 240 / 240 480 / 480 Other: Meal Lunch Percent of Meal Consumed 100% # Voids 1 2 Weight 129.7 kg Patient Weight 08/03/18 23:59 Weight 129.7 kg - Labs CBC & BMP: 08/03/18 09:31 08/03/18 09:31 Labs: Abnormal lab results MCH 33.7 pg (28.0-33.3) H 08/03/18 09:31 MCHC 35.6 g/dL (31.6-35.5) H 08/03/18 09:31 ESR 44 mm/hr (0-10) H 07/31/18 01:23 Glucose 136 mg/dL (70-105) H 08/03/18 09:31 Vancomycin Trough 15 mcg/mL (5-10) H 08/01/18 21:00 Consult Discharge Plan - Plan Referrals: Lauren Iverson CNP [Advanced Practice Nurse] - 08/18/18 9:00 am Sunita Hackett [Primary Care Provider] - Prescriptions: Vancomycin [Vancocin] 2,000 mg IV Q12H #84 vial
[2018-08-03] MEDS: traMADol 50 MG TABLET PO PRN (19:39)
[2018-08-04] MEDS: *HR* Enoxaparin 40 MG/0.4 ML SYRINGE SQ SCH (06:23)
--- NOTE | 2018-08-04 07:52 | Orthopedics Progress Note ---
Date of Encounter: 08/04/18 Time of Encounter: 06:45 Subjective Principal diagnosis: Left elbow osteomyelitis of the ulnar Interval history: S: Resting in bed comfortably. Pain well controlled to the left elbow. O: Afebrile, VSS Dressing chnages; Wound is clean, dry, and intact. The patient can actively flex and extend all digits, extend the thumb, cross the index and long fingers, make an okay sign, and oppose the thumb. The fingertips are all sensate and well-perfused. Op cultures positive for MRSA A: Left proximal ulna osteomyelitis P: Appreciate ID assistance; currently on Vancomycin Will need SNF on discharge given patient's history of IV drug use Accepted at [place], awaiting insurance approval Discharge when placed. Objective Vital signs: Vital Signs Temp Pulse Resp BP Pulse Ox 08/04/18 07:20 97.4 F L 70 17 119/73 98 08/03/18 23:27 98.7 F 86 18 116/75 96 08/03/18 18:26 97.8 F 99 18 141/90 97 08/03/18 14:58 98.9 F 61 18 137/86 93 08/03/18 10:44 98.9 F 80 18 126/76 95 Intake and Output 08/03/18 08/03/18 08/04/18 15:59 23:59 07:59 Intake Total 980 / 980 1080 / 1080 500 / 500 Balance 980 / 980 1080 / 1080 500 / 500 Intake: IV Fluids 500 / 500 500 / 500 Vancocin 2,000 MG In 0.9 % 500 / 500 500 / 500 Sodium Chloride 500 ML @ 250 mls/hr IVPB Q12H [facility] Rx#: [id number] Oral 480 / 480 1080 / 1080 Other: Meal Lunch Dinner Percent of Meal Consumed 100% 100% # Voids 2 1 1 # Bowel Movements 1 Weight 133.4 kg Patient Weight 08/04/18 23:59 Weight 133.4 kg - Labs CBC & BMP: 08/03/18 09:31 08/03/18 09:31 Labs: Abnormal lab results MCH 33.7 pg (28.0-33.3) H 08/03/18 09:31 MCHC 35.6 g/dL (31.6-35.5) H 08/03/18 09:31 ESR 44 mm/hr (0-10) H 07/31/18 01:23 Glucose 136 mg/dL (70-105) H 08/03/18 09:31 Vancomycin Trough 15 mcg/mL (5-10) H 08/01/18 21:00 Consult Discharge Plan - Plan Referrals: Lauren Iverson, DARLENE [Advanced Practice Nurse] - 08/18/18 9:00 am Sunita Hackett [Primary Care Provider] - Prescriptions: Vancomycin [Vancocin] 2,000 mg IV Q12H #84 vial
[2018-08-04] MEDS: Ofloxacin *EAR* Drops 5 ML BOTTLE BOTH EARS SCH (08:53)
[2018-08-04] MEDS: amLODIPine 5 MG TABLET PO SCH (08:56)
[2018-08-04] MEDS: traMADol 50 MG TABLET PO PRN ×2 (09:14→21:59)
--- NOTE | 2018-08-04 10:54 | Infectious Disease Progress No ---
Date of Encounter: 08/04/18 Time of Encounter: 10:50 - Assessment and Plan (1) Infection of left elbow Current Visit: Yes Status: Acute Location: Left elbow. Causative organism unclear. Likely secondary to infected hardware from previous infections. Pre-op ESR 17, CRP 10. No sepsis criteria. Ortho following. Status post irrigation and debridement of the left elbow including the proximal ulna and removal of left elbow hardware. Operative note reviewed. Gross purulence noted intra-op. Concern for OM of the ulna. Intra-op cultures are positive for MRSA, both fluid and bone. Request pathologist review of the surgical bone specimen in case cultures are negative.--> negative for OM. Blood cultures x 2 sets drawn 07/29/18 are NGTD x 2 sets. Continue Vancomycin IV. Pharmacy to dose. Goal trough ~15. Wound care and activity restrictions per the ortho team. Duration of treatment depends on the clinical picture, but likely 4-6 weeks. Monitor renal function and for drug toxicity and dose-adjust antibiotics. resident services manager to assist with discharge planning. PICC line placed 07/31/18. Will need weekly CBC, BUN/Cr, Vanc trough, ESR, and CRP. Will need weekly PICC care per protocol. Follow up with ID 08/18/18 at 0920. (2) Status post hardware removal Current Visit: Yes Status: Acute Status post removal of hardware 07/28/[address] Saldana. (3) Hepatitis C Current Visit: Yes Status: Acute Known Hep C positive from IVDU. Recommend referral to GI as an outpatient. Qualifiers: Viral hepatitis chronicity: chronic Hepatic coma status: without hepatic coma Qualified Code(s): B18.2 - Chronic viral hepatitis C (4) H/O intravenous drug use in remission Current Visit: Yes Status: Acute Known Hep C positive. Check Hep B serologies.--> Antigen negative, Antibody positive. Check HIV. --> nonreactive. - Subjective Interval history: Patient seen and examined. No acute events noted overnight. Patient states overall he feels well. Denies fevers, chills, or rigors. Denies chest pain, shortness of breath, or cough. Denies nausea, vomiting, or diarrhea. Denies abdominal pain, urinary complaints, or appetite changes. Denies oral thrush or new skin lesions. Denies pain at the surgical site. Accepted at [facility]. Pending insurance approval for discharge. Infect Dis PN-Objective Data - Labs CBC & Chem 7: 08/03/18 09:31 08/03/18 09:31 Labs: Laboratory Results - last 24 hr 08/04/18 09:00 Vancomycin Trough 15 H Cultures: Cultures 07/29/18 18:16 Blood Culture - Final Peripheral Venipuncture No growth. Final report. 07/29/18 18:16 Blood Culture - Final Peripheral Venipuncture No growth. Final report. 07/28/18 16:50 Anaerobic Culture - Final Left Elbow No anaerobes were recovered. 07/28/18 16:50 Anaerobic Culture - Final Left Elbow No anaerobes were recovered. 07/28/18 16:50 Surgical Biopsy Culture - Final Bone Methicillin Resistant S.aureus 07/28/18 16:50 Wound Culture - Final Left Elbow Methicillin Resistant S.aureus 07/28/18 16:50 Gram Stain - Final Left Elbow Serology 07/29/18 Range/Units 18:16 Hep Bs Antigen Nonreactive (Nonreactive) Hep Bs Antibody 104.29 mIU/mL HIV Ag/Ab Combo Qual Nonreactive (Nonreactive) Exam - Constitutional Vitals: Temp Pulse Resp BP Pulse Ox 97.4 F L 70 17 119/73 98 08/04/18 07:20 08/04/18 07:20 08/04/18 07:20 08/04/18 07:20 08/04/18 07:20 General appearance: cooperative, no acute distress, obese - Head Head exam: Present: atraumatic, normal inspection, normocephalic - Eye Eye exam: Present: EOMI, normal appearance, PERRL Pupils: Present: normal accommodation - ENT ENT exam: Present: mucous membranes moist - Neck Neck exam: Present: normal inspection - Respiratory Respiratory exam: Present: CTAB. Absent: rales, respiratory distress, rhonchi, wheezes - Cardiovascular Cardiovascular exam: Present: +S1, +S2 - GI/Abdominal GI/Abdominal exam: Present: distended (obese), normal bowel sounds, soft. Absent: tenderness - Extremities Exam Extremities exam: Absent: joint swelling, normal inspection (LUE splint and dressing C/D/I.), pedal edema, tenderness Additional comments: LUE motor and sensory intact. No swelling noted. - Neurological Exam Neurological exam: Present: alert, oriented X3, no focal deficits - Psychiatric Psychiatric exam: Present: normal affect, normal mood - Skin Skin exam: Present: dry, intact, normal color, warm Consult Discharge Plan - Plan Referrals: Lauren Iverson CNP [Advanced Practice Nurse] - 08/18/18 9:00 am Sunita Hackett [Primary Care Provider] - Prescriptions: Vancomycin [Vancocin] 2,000 mg IV Q12H #84 vial - Attending Attestation I examined this patient and my medical decision-making was reviewed with the Resident Physician. I agree with the documented findings, disposition and treatment plan as described except to the extent set forth below.
[2018-08-05] MEDS: *HR* Enoxaparin 40 MG/0.4 ML SYRINGE SQ SCH (05:20)
[2018-08-05] MEDS: Ofloxacin *EAR* Drops 5 ML BOTTLE BOTH EARS SCH (08:42)
[2018-08-05] MEDS: amLODIPine 5 MG TABLET PO SCH (08:42)
[2018-08-05 09:10] LABS: Basophils # 0.1 K/mcL (0.0-0.2); Basophils % 0.8 %; Eosinophils # 0.2 K/mcL (0.0-0.6); Eosinophils % 2.1 %; Immature Granulocytes % 0.6 % (0-4); Lymphocytes # 4.1 K/mcL (0.6-4.6); Lymphocytes % 47.7 %; Mean Corpuscular HGB Conc 36.2 g/dL (31.6-35.5); Mean Corpuscular Hemoglobin 34.6 pg (28.0-33.3); Mean Corpuscular Volume 95.5 fL (83.0-100.0); Monocytes # 0.5 K/mcL (0.0-1.3); Monocytes % 6.4 %; Neutrophils # 3.6 K/mcL (1.6-8.9); Platelet Count 193 K/mcL (140-400); Red Blood Count 4.92 M/mcL (4.19-5.50); Red Cell Distribution Width 12.5 % (11.5-14.5); Segmented Neutrophils % 42.4 %
[2018-08-05 09:28] LABS: BUN/Creatinine Ratio 17 (6-26); Blood Urea Nitrogen 15 mg/dL (6-20); Calcium 9.6 mg/dL (8.6-10.3); Carbon Dioxide 24 mEq/L (23-29); Chloride 110 mEq/L (98-107); Glucose 94 mg/dL (70-105); Osmolality,Calculated 293 (280-300); Potassium 4.4 mEq/L (3.5-5.1); Sodium 141 mEq/L (136-145); eGFR For Non-African Americans > 60 (> 60)
--- NOTE | 2018-08-05 10:12 | Infectious Disease Progress No ---
Date of Encounter: 08/05/18 Time of Encounter: 10:10 - Assessment and Plan (1) Infection of left elbow Current Visit: Yes Status: Acute Location: Left elbow. Causative organism unclear. Likely secondary to infected hardware from previous infections. Pre-op ESR 17, CRP 10. No sepsis criteria. Ortho following. Status post irrigation and debridement of the left elbow including the proximal ulna and removal of left elbow hardware. Operative note reviewed. Gross purulence noted intra-op. Concern for OM of the ulna. Intra-op cultures are positive for MRSA, both fluid and bone. Request pathologist review of the surgical bone specimen in case cultures are negative.--> negative for OM. Blood cultures x 2 sets drawn 07/29/18 are NGTD x 2 sets. Continue Vancomycin IV. Pharmacy to dose, but will plan on 2 grams IV Q12H for now. Dosing discussed with Dylan France. Goal trough ~15. Wound care and activity restrictions per the ortho team. Duration of treatment depends on the clinical picture, but likely 4-6 weeks. Monitor renal function and for drug toxicity and dose-adjust antibiotics. office services clerk to assist with discharge planning. PICC line placed 07/31/18. Will need weekly CBC, BUN/Cr, Vanc trough, ESR, and CRP. Will need weekly PICC care per protocol. Follow up with ID 08/18/18 at 0920. (2) Status post hardware removal Current Visit: Yes Status: Acute Status post removal of hardware 07/28/[address] Saldana. (3) Hepatitis C Current Visit: Yes Status: Acute Known Hep C positive from IVDU. Recommend referral to GI as an outpatient. Qualifiers: Viral hepatitis chronicity: chronic Hepatic coma status: without hepatic coma Qualified Code(s): B18.2 - Chronic viral hepatitis C (4) H/O intravenous drug use in remission Current Visit: Yes Status: Acute Known Hep C positive. Check Hep B serologies.--> Antigen negative, Antibody positive. Check HIV. --> nonreactive. - Subjective Interval history: Patient seen and examined. No acute events noted overnight. Patient states overall he feels well. Denies fevers, chills, or rigors. Denies chest pain, shortness of breath, or cough. Denies nausea, vomiting, or diarrhea. Denies abdominal pain, urinary complaints, or appetite changes. Denies oral thrush or new skin lesions. Reports last BM was this morning. Denies pain at the surgical site. Accepted at [facility]. Pending insurance approval for discharge. Infect Dis PN-Objective Data - Labs CBC & Chem 7: 08/05/18 Unknown 08/05/18 Unknown Labs: Laboratory Results - last 24 hr 08/05/18 08/05/18 Unknown Unknown WBC 8.5 RBC 4.92 Hgb 17.0 H Hct 47.0 MCV 95.5 MCH 34.6 H MCHC 36.2 H RDW 12.5 Plt Count 193 MPV 10.0 Immature Gran % 0.6 Seg Neutrophils % 42.4 Lymphocytes % 47.7 Monocytes % 6.4 Eosinophils % 2.1 Basophils % 0.8 Neutrophils # 3.6 Lymphocytes # 4.1 Monocytes # 0.5 Eosinophils # 0.2 Basophils # 0.1 Sodium 141 Potassium 4.4 Chloride 110 H Carbon Dioxide 24 BUN 15 Creatinine 0.89 Est GFR ( Amer) > 60 Est GFR (Non-Af Amer) > 60 BUN/Creatinine Ratio 17 Glucose 94 Calculated Osmolality 293 Calcium 9.6 Cultures: Cultures 07/29/18 18:16 Blood Culture - Final Peripheral Venipuncture No growth. Final report. 07/29/18 18:16 Blood Culture - Final Peripheral Venipuncture No growth. Final report. 07/28/18 16:50 Anaerobic Culture - Final Left Elbow No anaerobes were recovered. 07/28/18 16:50 Anaerobic Culture - Final Left Elbow No anaerobes were recovered. 07/28/18 16:50 Surgical Biopsy Culture - Final Bone Methicillin Resistant S.aureus 07/28/18 16:50 Wound Culture - Final Left Elbow Methicillin Resistant S.aureus 07/28/18 16:50 Gram Stain - Final Left Elbow Serology 07/29/18 Range/Units 18:16 Hep Bs Antigen Nonreactive (Nonreactive) Hep Bs Antibody 104.29 mIU/mL HIV Ag/Ab Combo Qual Nonreactive (Nonreactive) Exam - Constitutional Vitals: Temp Pulse Resp BP Pulse Ox 98.1 F 89 16 128/81 97 08/05/18 07:00 08/05/18 07:00 08/05/18 07:00 08/05/18 07:00 08/05/18 07:00 General appearance: cooperative, no acute distress, obese - Head Head exam: Present: atraumatic, normal inspection, normocephalic - Eye Eye exam: Present: EOMI, normal appearance, PERRL Pupils: Present: normal accommodation Consult Discharge Plan - Plan Referrals: Lauren Iverson CNP [Advanced Practice Nurse] - 08/18/18 9:00 am Sunita Hackett [Primary Care Provider] - Prescriptions: Vancomycin [Vancocin] 2,000 mg IV Q12H #84 vial - Attending Attestation I examined this patient and my medical decision-making was reviewed with the Resident Physician. I agree with the documented findings, disposition and treatment plan as described except to the extent set forth below.
[2018-08-05 11:49] VITALS: BP 126/78
--- NOTE | 2018-08-05 17:07 | Orthopedics Progress Note ---
Date of Encounter: 08/05/18 Time of Encounter: 17:06 Subjective Principal diagnosis: Left elbow osteomyelitis of the ulnar Interval history: S: Resting in bed comfortably. Pain well controlled to the left elbow. O: Afebrile, VSS Dressing changed; Wound is clean, dry, and intact. The patient can actively flex and extend all digits, extend the thumb, cross the index and long fingers, make an okay sign, and oppose the thumb. The fingertips are all sensate and well-perfused. Op cultures positive for MRSA A: Left proximal ulna osteomyelitis P: Appreciate ID assistance; currently on Vancomycin Will need SNF on discharge given patient's history of IV drug use Accepted at [facility] approved Discharge today. Objective Vital signs: Vital Signs Temp Pulse Resp BP Pulse Ox 08/05/18 09:44 98 F 94 16 126/78 95 08/05/18 07:00 98.1 F 89 16 128/81 97 08/04/18 23:55 97.8 F 93 16 120/79 97 08/04/18 21:20 98.1 F 97 15 120/70 96 Intake and Output 08/05/18 08/05/18 08/05/18 07:59 15:59 23:59 Intake Total 700 / 700 500 / 500 Balance 700 / 700 500 / 500 Intake: IV Fluids 500 / 500 Vancocin 2,000 MG In 0.9 % 500 / 500 Sodium Chloride 500 ML @ 250 mls/hr IVPB Q12H [facility] Rx#: [id number] Oral 700 / 700 Other: Weight 133.1 kg Patient Weight 08/05/18 23:59 Weight 133.1 kg - Labs CBC & BMP: 08/05/18 Unknown 08/05/18 Unknown Labs: Abnormal lab results Hgb 17.0 g/dL (12.9-16.9) H 08/05/18 Unknown MCH 34.6 pg (28.0-33.3) H 08/05/18 Unknown MCHC 36.2 g/dL (31.6-35.5) H 08/05/18 Unknown ESR 44 mm/hr (0-10) H 07/31/18 01:23 Chloride 110 mEq/L (98-107) H 08/05/18 Unknown Vancomycin Trough 15 mcg/mL (5-10) H 08/04/18 09:00 Consult Discharge Plan - Plan Referrals: Lauren Iverson, DARLENE [Advanced Practice Nurse] - 08/18/18 9:00 am Sunita Hackett [Primary Care Provider] - Prescriptions: Vancomycin [Vancocin] 2,000 mg IV Q12H #84 vial
--- NOTE | 2018-08-05 17:11 | Physician Discharge Referral ---
ExtendedCare Referral Info Transfer To: [facility] - Diagnosis (1) Osteomyelitis of left elbow Status: Acute Expected Duration of Placement: 4 weeks Prognosis: Good Aware of Diagnosis: Patient Aware of Prognosis: Family - Transfer Medications Prescriptions: Ibuprofen 400 mg PO Q8HR PRN #21 tablet PRN Reason: Pain Vancomycin [Vancocin] 2,000 mg IV Q12H #84 vial Home Medications: Ofloxacin *EAR* Drops [Floxin] 10 drop BOTH EARS HS 07/28/18 [History] Amlodipine Besylate 10 mg PO DAILY 07/29/18 [History] Vancomycin [Vancocin] 2,000 mg IV Q12H #84 vial 07/31/18 [Rx] Ibuprofen 400 mg PO Q8HR PRN #21 tablet 08/05/18 [Rx] Allergies/Adverse Reactions: 3 Allergy/AdvReac Type Severity Reaction Status Date / Time No Known Allergies Allergy Verified 07/29/18 09:52 - Respiratory Orders Smoking Cessation: Smoking cessation has been advised. For more information, call the [employer] Quit Line at 0-398-BJAQ-NOW. - Advance Directives Code Status: Full Code - Mobility Orders Ambulate - Rehabiliation Orders Rehab Potential: Good - Treatments List/Other: DISCHARGE INSTRUCTIONS Dr. Saldana DISCHARGE DIAGNOSIS/PROCEDURE Osteomyelitis of the left olecranon ACTIVITY: Activities as tolerated. Ambulate often to reduce the risk of blood clots. WOUND CARE: Keep the splint intact. DIET: Begin with clear liquids, and then increase your diet as you feel comfortable. MEDICATIONS: Pain: Ibuprofen prescription provided Antibiotics: Vancomycin prescription provided by the infectious disease specialists FOLLOW-UP Follow-up with Dr. Saldana in the office August 12, for a post operative evaluation. Call the office at [phone] to schedule or confirm your appointment. WHEN TO CALL THE DOCTOR OR WHEN TO SEEK CARE BEFORE YOUR APPOINTMENT 1. Excess swelling or increased numbness not made better by elevating the hand and moving the fingers. 2. Uncontrolled pain. 3. A color change in your hand or fingers. 4. Worsening redness or drainage. 5. Fevers over 100.5 degrees F or 38.1 degrees C. 6. Any symptoms that bring concern to you. - Diet Orders Regular CERTIFICATION: I certify that the transfer of the above named patient to an Extended Care Facility is necessary for the continuing treatment of the diagnosis listed. The above information is true and accurate reflection of patient's current condition. Confidential - Redisclosure prohibited without a patient's written consent.
[2018-08-05] MEDS ORDERED: Aminoglycoside Consult 1 EACH MC ONE (17:52)
== END 2018-08-05 17:53 | DRG 315 ==
LOC: SAMDAY 13:17 → 3NENU 19:25
PROVIDERS: ADMIT Orthopaedic Surgery Hand Surgery; ATTEND Orthopaedic Surgery Hand Surgery

== ENCOUNTER 2021-01-30 16:22 | Observation (INO) ==
[2021-01-30 17:00] LABS: Bilirubin,Urine Negative (Negative); Blood,Urine Negative (Negative); Clarity,Urine Clear (Clear); Color,Urine Colorless (Yellow); Glucose,Urine (UA) >=1000 mg/dL (Normal); Ketones,Urine Negative (Negative); Leukocyte Esterase,Urine Negative (Negative); Mucus,Urine Few per lpf (None-Few); Nitrite,Urine Negative (Negative); Protein,Urine Negative (Neg-Trace); RBC,Urine 0-3 per hpf (0-3); Specific Gravity,Urine > 1.030 (1.010-1.025); Squamous Epithelial Cell,Urine Few per hpf (None-Few); Urobilinogen,Urine Normal (Normal); WBC,Urine 0-3 per hpf (0-3)
[2021-01-30 17:14] LABS: BUN/Creatinine Ratio 9 (6-26); Blood Urea Nitrogen 11 mg/dL (6-20); Calcium 9.4 mg/dL (8.6-10.3); Carbon Dioxide 25 mEq/L (23-29); Chloride 95 mEq/L (98-107); Glucose 679 mg/dL (70-105); Osmolality,Calculated 302 (280-300); Potassium 4.5 mEq/L (3.5-5.1); Sodium 130 mEq/L (136-145); eGFR For African Americans > 60 (> 60); eGFR For Non-African Americans > 60 (> 60)
[2021-01-30] MEDS ORDERED: 0.9 % Sodium Chloride 1,000 ML IVC STA ×2 (17:15→18:25)
[2021-01-30 17:27] LABS: VBG HCO3 26 mEq/L (21-27); VBG PCO2 43 mmHg (41-51); VBG PH 7.39 pH Units (7.32-7.42); VBG PO2 59 mmHg (25-50)
[2021-01-30] MEDS ORDERED: Insulin Regular, Human 100 UNIT/ML IV PRN (17:51)
[2021-01-30] MEDS ORDERED: *HR* Dextrose 50 % in Water (Vial) 50 ML VIAL IVP PRN (17:51)
[2021-01-30] MEDS ORDERED: Insulin Human Regular 100 UNIT in 0.9 % Sodium Chloride 100 ML IVC SCH ×2 (18:00→22:15)
[2021-01-30 18:57] LABS: Basophils # 0.1 K/mcL (0.0-0.2); Basophils % 0.6 %; Eosinophils # 0.1 K/mcL (0.0-0.6); Eosinophils % 1.1 %; Hematocrit 52.1 % (37.5-50.1); Hemoglobin 18.3 g/dL (12.9-16.9); Immature Granulocytes % 0.4 % (0-4); Lymphocytes # 3.4 K/mcL (0.6-4.6); Lymphocytes % 43.5 %; Mean Corpuscular HGB Conc 35.1 g/dL (31.6-35.5); Mean Corpuscular Hemoglobin 32.6 pg (28.0-33.3); Mean Corpuscular Volume 92.9 fL (83.0-100.0); Monocytes # 0.5 K/mcL (0.0-1.3); Monocytes % 6.3 %; Neutrophils # 3.8 K/mcL (1.6-8.9); Platelet Count 176 K/mcL (140-400); Red Blood Count 5.61 M/mcL (4.19-5.50); Segmented Neutrophils % 48.1 %; White Blood Count 7.8 K/mcL (4.3-11.1)
[2021-01-30] MEDS: 0.45 % Sodium Chloride w/KCl 20 MEQ/1,000 ML MLS IVC SCH ×2 (19:13→21:44)
[2021-01-30] MEDS ORDERED: 0.9 % Sodium Chloride 1,000 ML IVC SCH (19:15)
[2021-01-30] MEDS ORDERED: Ondansetron 4 MG/2 ML VIAL IVP PRN (19:16)
[2021-01-30] MEDS ORDERED: Naloxone 0.4 MG/ML INJ IVP PRN (19:16)
[2021-01-30] MEDS ORDERED: *HR* Metoprolol 5 MG/5 ML VIAL IVP ONE (20:37)
[2021-01-30 20:55] LABS: Amphetamine Screen,Urine Negative ng/mL (Cutoff=1000); Barbiturate Screen,Urine Negative ng/mL (Cutoff=200); Benzodiazepines Screen,Urine Negative ng/mL (Cutoff=200); Cannabinoid Screen,Urine Negative ng/mL (Cutoff = 50); Cocaine Screen,Urine Negative ng/mL (Cutoff= 300); Opiate Screen,Urine Negative ng/mL (Cutoff=300); Phencyclidine Screen,Urine Negative ng/mL (Cutoff=25)
[2021-01-30 21:20] LABS: VBG HCO3 23 mEq/L (21-27); VBG PCO2 33 mmHg (41-51); VBG PH 7.44 pH Units (7.32-7.42); VBG PO2 143 mmHg (25-50)
[2021-01-30 21:36] LABS: BUN/Creatinine Ratio 13 (6-26); Blood Urea Nitrogen 12 mg/dL (6-20); Calcium 9.4 mg/dL (8.6-10.3); Carbon Dioxide 22 mEq/L (23-29); Chloride 107 mEq/L (98-107); Glucose 361 mg/dL (70-105); Osmolality,Calculated 296 (280-300); Potassium 3.9 mEq/L (3.5-5.1); Sodium 136 mEq/L (136-145); eGFR For African Americans > 60 (> 60); eGFR For Non-African Americans > 60 (> 60)
[2021-01-30 21:38] LABS: Magnesium 1.8 mg/dL (1.6-2.6); Phosphorous 2.6 mg/dL (2.7-4.5)
[2021-01-30] MEDS: *HR* Heparin 5,000 UNIT/ML VIAL SQ SCH (21:44)
[2021-01-30] MEDS: Nicotine 21 MG PATCH.TD24 TD SCH (21:44)
[2021-01-30 21:52] LABS: Thyroid Stimulating Hormone 2.383 mcIU/mL (0.340-5.600)
[2021-01-30] MEDS ORDERED: D5% in 0.45% NACL 1,000 ML IVC PRN (22:04)
[2021-01-30] MEDS ORDERED: D5% in 0.45% NACL w KCl 20 MEQ/1,000 ML MLS IVC PRN (22:04)
[2021-01-31] MEDS: 0.45 % Sodium Chloride w/KCl 20 MEQ/1,000 ML MLS IVC SCH ×4 (00:08→05:13)
[2021-01-31 00:35] LABS: Red Cell Distribution Width 11.9 % (11.5-14.5)
[2021-01-31 00:37] LABS: Hemoglobin 16.6 g/dL (12.9-16.9); Immature Platelets 5.2 % (1.1-6.1); Mean Corpuscular HGB Conc 35.3 g/dL (31.6-35.5); Mean Corpuscular Hemoglobin 32.2 pg (28.0-33.3); Mean Corpuscular Volume 91.1 fL (83.0-100.0); Red Blood Count 5.16 M/mcL (4.19-5.50); White Blood Count 8.1 K/mcL (4.3-11.1)
[2021-01-31 00:45] LABS: Estimated Average Glucose 346 mg/dl; Hemoglobin A1C 13.7 %
[2021-01-31 00:56] LABS: BUN/Creatinine Ratio 15 (6-26); Blood Urea Nitrogen 12 mg/dL (6-20); Calcium 8.9 mg/dL (8.6-10.3); Carbon Dioxide 23 mEq/L (23-29); Chloride 109 mEq/L (98-107); Chol/HDL Ratio 6.3 (0-4.9); Glucose 185 mg/dL (70-105); Osmolality,Calculated 293 (280-300); Potassium 3.6 mEq/L (3.5-5.1); Sodium 139 mEq/L (136-145); eGFR For African Americans > 60 (> 60); eGFR For Non-African Americans > 60 (> 60)
[2021-01-31] MEDS ORDERED: Insulin DETEMIR 100 UNIT/ML X5UNITS SUBQ ONE (01:54)
[2021-01-31 03:22] LABS: Hepatitis B Surface Antigen Nonreactive (Nonreactive)
[2021-01-31 03:51] LABS: Hepatitis A Antibody IgM Nonreactive (Nonreactive); Hepatitis B Core IgM Nonreactive (Nonreactive)
[2021-01-31 05:09] LABS: Hepatitis C Virus Antibody Reactive (Nonreactive)
[2021-01-31] MEDS: *HR* Heparin 5,000 UNIT/ML VIAL SQ SCH ×3 (06:18→20:10)
[2021-01-31] MEDS: Nicotine 21 MG PATCH.TD24 TD SCH (08:35)
[2021-01-31] MEDS: Insulin LISPRO 300 UNITS/3 ML VIAL SUBQ SCH ×3 (08:35→16:28)
[2021-01-31] MEDS: amLODIPine 5 MG TABLET PO SCH (10:37)
[2021-01-31] MEDS: lisinopriL 10 MG TABLET PO SCH (10:37)
[2021-01-31] MEDS ORDERED: Insulin LISPRO 300 UNITS/3 ML VIAL SUBQ SCH (21:00)
[2021-01-31] MEDS ORDERED: Insulin DETEMIR 100 UNIT/ML X5UNITS SUBQ SCH ×2 (21:00)
[2021-02-01] MEDS: *HR* Heparin 5,000 UNIT/ML VIAL SQ SCH (05:33)
[2021-02-01 06:45] LABS: Hematocrit 49.3 % (37.5-50.1); Hemoglobin 17.1 g/dL (12.9-16.9); Mean Corpuscular HGB Conc 34.7 g/dL (31.6-35.5); Mean Corpuscular Volume 92.3 fL (83.0-100.0); Mean Platelet Volume 11.2 fL (9.4-12.4); Platelet Count 164 K/mcL (140-400); Red Blood Count 5.34 M/mcL (4.19-5.50); Red Cell Distribution Width 12.1 % (11.5-14.5); White Blood Count 6.2 K/mcL (4.3-11.1)
[2021-02-01 06:59] VITALS: BP 123/87
[2021-02-01 07:01] LABS: BUN/Creatinine Ratio 14 (6-26); Blood Urea Nitrogen 12 mg/dL (6-20); Calcium 9.1 mg/dL (8.6-10.3); Carbon Dioxide 23 mEq/L (23-29); Chloride 106 mEq/L (98-107); Glucose 228 mg/dL (70-105); Osmolality,Calculated 289 (280-300); Potassium 3.8 mEq/L (3.5-5.1); Sodium 136 mEq/L (136-145); eGFR For African Americans > 60 (> 60); eGFR For Non-African Americans > 60 (> 60)
[2021-02-01] MEDS: lisinopriL 10 MG TABLET PO SCH (08:13)
[2021-02-01] MEDS: amLODIPine 5 MG TABLET PO SCH (08:18)
[2021-02-01] MEDS: Insulin LISPRO 300 UNITS/3 ML VIAL SUBQ SCH (08:19)
[2021-02-01] MEDS: Nicotine 21 MG PATCH.TD24 TD SCH (08:20)
== END 2021-02-01 10:15 | disposition home or self-care (01) ==
LOC: EMEROOARM 16:22 → 2NNU 16:22 → SUATTDRO 20:43 → 2NNU 21:48 → 3BNU 01-31 15:43
PROVIDERS: ADMIT Student in an Organized Health Care Education/Training Program; ATTEND Family Medicine